=== PATIENT | female | born 1990 | race Caucasian/White ===

== ENCOUNTER 2017-06-20 15:42 | Emergency (ER) | payer SELFPAY ==
[~2017-06-20] VITALS: Ht 157.5 cm; Wt 80.0 kg
[2017-06-20 15:43] VITALS: BP 132/86; PULSE 84; RESP 16; TEMP 98.6; O2SAT 100
== END 2017-06-20 16:50 | disposition left against medical advice (07) ==
LOC: NED 15:42
DX: O26.91 Pregnancy related conditions, unspecified, first trimester (principal)
CPT/HCPCS: 99281

== ENCOUNTER 2017-07-14 14:46 | Emergency (ER) | payer MEDICAID ==
[~2017-07-14] VITALS: Ht 157.5 cm; Wt 80.0 kg
[2017-07-14 14:47] VITALS: BP 119/78; PULSE 104; RESP 14; TEMP 98.3; O2SAT 99
[2017-07-14] MEDS ORDERED: PROMETHAZINE INJ 25 MG/ML VIAL IM ONE (15:15)
[2017-07-14] MEDS ORDERED: SODIUM CHLOR 0.9% 1000 ML INJ 1,000 ML IV ONE (15:15)
--- NOTE | 2017-07-14 15:18 | PD ---
HPI Chief Complaint: GI Complaint Time Seen by Provider: 14:56 Travel History International Travel<30 days: No Contact w/Intl Traveler<30days: No Traveled to known affect area: No History of Present Illness HPI The patient was seen and examined in the presence of the nurse. This patient complains of nausea and vomiting and diarrhea. Symptoms started this morning at 6:45 AM. Patient is 9 weeks dated by early ultrasound. She had one episode of diarrhea today and multiple episodes of vomiting. She reports that her young child has the same symptoms that started at the same time. She denies fever. No vaginal bleeding or discharge. No alleviating factors. No exacerbating factors. duration 8 hours PFSH Past Medical History Diminished Hearing: No ?: LMP: 05/06/17 : 2 Para: 1 Social History Alcohol Use: No Tobacco Use: No Substance Use: No Allergies-Medications (Allergen,Severity, Reaction): Coded Allergies: penicillin G (Unverified Allergy, Intermediate, Rash, 07/14/17) Reported Meds & Prescriptions Reported Meds & Active Scripts Active No Active Prescriptions or Reported Medications Review of Systems General / Constitutional: No: Fever Eyes: No: Visual changes HENT: No: Headaches Cardiovascular: No: Chest Pain or Discomfort Respiratory: No: Shortness of Breath Gastrointestinal: Positive: Nausea, Vomiting, Diarrhea Genitourinary: No: Dysuria Musculoskeletal: No: Pain Skin: No Rash Neurologic: No: Weakness Psychiatric: No: Depression Endocrine: No: Polydipsia Hematologic/Lymphatic: No: Easy Bruising Physical Exam Narrative GENERAL: Well-nourished, well-developed patient in no apparent distress. SKIN: Focused skin assessment reveals no rash and nodules. Skin is Warm and dry. HEAD: Atraumatic. Normocephalic. EYES: Pupils equal and round. No scleral icterus. No injection or drainage. ENT: No nasal bleeding or discharge. Mucous membranes pink and moist. NECK: Trachea midline. No JVD. CARDIOVASCULAR: Regular rate and rhythm. No murmur appreciated. RESPIRATORY: No accessory muscle use. Clear to auscultation. Breath sounds equal bilaterally. GASTROINTESTINAL: Abdomen soft, non-tender, nondistended. Hepatic and splenic margins not palpable. MUSCULOSKELETAL: No obvious deformities. No clubbing. No cyanosis. No edema. NEUROLOGICAL: Awake and alert. No obvious cranial nerve deficits. Motor grossly within normal limits. Normal speech. PSYCHIATRIC: Appropriate mood and affect; insight and judgment normal. Data Data Last Documented VS Vital Signs Date Time Temp Pulse Resp B/P (MAP) Pulse Ox O2 Delivery O2 Flow Rate FiO2 07/14/17 14:47 98.3 104 14 119/78 (92) 99 Orders Orders Promethazine Inj (Phenergan Inj) (07/14/17 15:15) Sodium Chlor 0.9% 1000 Ml Inj (Ns 1000 M (07/14/17 15:15) Complete Blood Count With Diff (07/14/17 15:08) Basic Metabolic Panel (Bmp) (07/14/17 15:08) Labs Laboratory Tests Test 07/14/17 15:20 White Blood Count 11.0 TH/MM3 Red Blood Count 4.63 MIL/MM3 Hemoglobin 14.0 GM/DL Hematocrit 40.9 % Mean Corpuscular Volume 88.3 FL Mean Corpuscular Hemoglobin 30.2 PG Mean Corpuscular Hemoglobin Concent 34.2 % Red Cell Distribution Width 12.3 % Platelet Count 182 TH/MM3 Mean Platelet Volume 9.7 FL Neutrophils (%) (Auto) 93.8 % Lymphocytes (%) (Auto) 2.7 % Monocytes (%) (Auto) 2.9 % Eosinophils (%) (Auto) 0.3 % Basophils (%) (Auto) 0.3 % Neutrophils # (Auto) 10.3 TH/MM3 Lymphocytes # (Auto) 0.3 TH/MM3 Monocytes # (Auto) 0.3 TH/MM3 Eosinophils # (Auto) 0.0 TH/MM3 Basophils # (Auto) 0.0 TH/MM3 CBC Comment DIFF FINAL Differential Comment Blood Urea Nitrogen 9 MG/DL Creatinine 0.64 MG/DL Random Glucose 115 MG/DL Calcium Level 8.4 MG/DL Sodium Level 138 MEQ/L Potassium Level 3.7 MEQ/L Chloride Level 107 MEQ/L Carbon Dioxide Level 20.3 MEQ/L Anion Gap 11 MEQ/L Estimat Glomerular Filtration Rate 113 ML/MIN [facility] Medical Decision Making Medical Screen Exam Complete: Yes Emergency Medical Condition: Yes Medical Record Reviewed: Yes Differential Diagnosis Hyperemesis of , gastroenteritis, food poisoning Narrative Course I have reviewed the patient's electronic medical record. IV placed I gave her 1 L normal saline IV and IM Phenergan CBC is normal Metabolic profile is normal Patient has not had vomiting while here On recheck she feels improved I wrote her some Phenergan. We had a discussion about the category C nature of the medication that she is and she accepts that risk and requests prescription. Because it helped her a lot I have recommended clear liquids for 24 hours, then gradually advance as tolerated. The patient was warned about potential sedation for the medications they will receive on prescription. Needs follow-up Diagnosis Primary Impression: Nausea vomiting and diarrhea Additional Impression: Qualified Codes: Z3A.09 - 9 weeks gestation of Additional Instructions: I have recommended clear liquids for 24 hours, then gradually advance as tolerated. The patient was warned about potential sedation for the medications they will receive on prescription. The patient was advised to follow up with their physician and return if they worsen. Med/Other Pt SpecificInfo: Prescription(s) given Scripts Promethazine (Phenergan) 25 Mg Tablet 25 MG PO Q6H Y for NAUSEA OR VOMITING, #15 TAB 0 Refills Prov: Manuelito Murphy MD 07/14/17 Disposition: 01 DISCHARGE HOME Condition: Stable Manuelito Murphy MD Jul 14, 2017 15:18
[2017-07-14 15:52] LABS: AUTOMATED NEUTROPHIL # 10.3 TH/MM3 (1.8-7.7); BASOPHIL % 0.3 % (0.0-2.0); EOSINOPHIL % 0.3 % (0.0-4.0); HEMATOCRIT 40.9 % (35.0-46.0); HEMO FLAGS DIFF FINAL; LYMPH % 2.7 % (9.0-44.0); LYMPHOCYTE # 0.3 TH/MM3 (1.0-4.8); MEAN CELL VOLUME 88.3 FL (80.0-100.0); MEAN CORPUSCULAR HEMOGLOBIN 30.2 PG (27.0-34.0); MEAN CORPUSCULAR HGB CONC 34.2 % (32.0-36.0); MONO % 2.9 % (0.0-8.0); NEUT % 93.8 % (16.0-70.0); PLATELET COUNT 182 TH/MM3 (150-450); RED BLOOD COUNT 4.63 MIL/MM3 (4.00-5.30); RED CELL DISTRIBUTION WIDTH 12.3 % (11.6-17.2)
[2017-07-14 16:03] LABS: BICARBONATE 20.3 MEQ/L (21.0-32.0); POTASSIUM 3.7 MEQ/L (3.5-5.1)
[2017-07-14] MEDS ORDERED: PROM25TA10 PO (16:11)
[2017-07-14 16:30] VITALS: BP 124/79
== END 2017-07-14 17:05 | disposition home or self-care (01) ==
LOC: NEPD 14:46
DX: O99.89 Other specified diseases and conditions complicating pregnancy, childbirth and the puerperium (principal); R19.7 Diarrhea, unspecified; O21.9 Vomiting of pregnancy, unspecified; Z3A.09 9 weeks gestation of pregnancy
CPT/HCPCS: 80048; 85025; 96360; 96372; 99284; J2550; J7030

== ENCOUNTER 2017-11-07 19:08 | Emergency (ER) | payer MEDICAID, OTHER ==
[~2017-11-07 19:08] MED LIST: PROM25TA10 PO
--- NOTE | 2017-11-07 20:04 | PD ---
HPI Chief Complaint Crampy abdominal pain for a day Date Seen: Nov 07, 2017 Time Seen: 19:55 Travel History International Travel<30 Days: No Contact w/Intl Traveler<30Days: No Known Affected Area: No History of Present Illness HPI Patient is 27-year-old white female [address] Tucker for care she complains of crampy abdominal pain feeling like the known above the bladder is 'bruised.' She denies bleeding or leakage of fluid. No contractions seen on the monitor Nate tracing is reactive. Weeks Gestation: 25 Para: 1 : 3 Last Menstrual Period: Nov 07, 2017 History Obstetric History Obstetric History 1 vaginal delivery in the past 1 early loss Social History Alcohol Use: No Tobacco Use: No Substance Abuse: No Allergies-Medications (Allergen,Severity, Reaction): Coded Allergies: penicillin G (Unverified Allergy, Intermediate, Rash, 07/14/17) Home Meds Active Scripts Promethazine (Phenergan) 25 Mg Tablet, 25 MG PO Q6H Y for NAUSEA OR VOMITING, # 15 TAB 0 Refills Prov:Manuelito Murphy MD 07/14/17 Review of Systems General / Constitutional: No: Fever, Weight Gain, Chills, Other Eyes: No: Diploplia, Blurred Vision, Visual changes, Pain, Photophobia HENT: No: Headaches, Vertigo, Lightheadedness Cardiovascular: No: Irregular Rhythm, Chest Pain or Discomfort, Palpitations, Tachycardia, Syncope, Varicosities, Edema, Cyanosis Respiratory: No: Cough, Short of Breath, Other Gastrointestinal: Abdominal Pain, No: Nausea, Vomiting, Diarrhea Genitourinary: No: Decreased Urinary Output, Oliguria Musculoskeletal: No: Limited ROM, Weakness, Cramping, Edema, Pain Skin: No Rash, No Itching, No Dryness, No Lumps, No Change in Pigmentation, No Change in Nails, No Alopecia, No Lesions Neurologic: No: Weakness, Dizziness, Syncope, Focal Abnormalities, Coordination Problem, Headache, Slurred Speech, Seizures Psychiatric: No: Depression, Suicidal Ideations, Homicidal Ideation Endocrine: No: Heat Intolerance, Cold Intolerance, Polydipsia, Polyuria, Other Physical Exam Narrative GENERAL: Well-nourished, well-developed patient. SKIN: Warm and dry. HEAD: Normocephalic and atraumatic. EYES: No scleral icterus. No injection or drainage. ENT: No nasal drainage noted. Mucous membranes pink. Airway patent. NECK: Supple, trachea midline. No JVD. CARDIOVASCULAR: Regular rate and rhythm without murmurs, gallops, or rubs. RESPIRATORY: Breath sounds equal bilaterally. No accessory muscle use. BREASTS: Bilateral exam showed no masses , no retractions, no nipple discharge. ABDOMEN/GI: Abdomen soft, non-tender, bowel sounds present, no rebound, no guarding Gravid to [25-] weeks size Fundal Height: [25-] GENITOURINARY: External Genitalia: intact and normal in appearance BUS glands: [-] Cervix: [-post] Dilatation: [-0] Effacement: [0-] Station: [-3] Membranes: [intact ] Uterine Contractions: [none-] FHT's: Category: [-1] Baseline: [133-] Reactive: [-R] Variability: [mod-] Decels: [-none] EXTREMITIES: No cyanosis or edema. BACK: Nontender without obvious deformity. No CVA tenderness. NEUROLOGICAL: Awake and alert. Motor and sensory grossly within normal limits. Five out of 5 muscle strength in all muscle groups. Normal speech. Data Data Labs Urinalysis on OB ED is negative MDM Interpretation(s) Patient 27-year-old white female at 25 weeks [facility] with crampy abdominal pain for approximately a day. Pain is now low to the symphysis and radiates around to the back low no pain up high, UA is negative, heart rate tracings reactive no contractions seen. Cervix is closed thick and high posterior. 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 Tylenol liberally, p.o. fluids for hydration, heating pad or hot bath or symptoms. In the follow-up with Dr. Tucker if symptoms persist. Diagnosis Diagnosis: Primary Impression: Abdominal cramping affecting Additional Impression: 25 weeks gestation of Disposition: 01 DISCHARGE HOME Condition: Stable Patient Instructions: General Instructions, Labor (ED), Movement (ED), Abdominal Pain in (ED), Urinary Tract Infection in (ED ) Departure Forms: Tests/Procedures Prabhakar Winston II, MD Nov 07, 2017 20:03
== END 2017-11-07 20:05 | disposition home or self-care (01) ==
LOC: HOBED 19:08
DX: O26.892 Other specified pregnancy related conditions, second trimester (principal); R10.9 Unspecified abdominal pain; Z3A.25 25 weeks gestation of pregnancy
CPT/HCPCS: 99283

== ENCOUNTER 2017-11-28 10:31 | Emergency (ER) | payer MEDICAID ==
[~2017-11-28] VITALS: Ht 160 cm; Wt 79.0 kg
[2017-11-28 10:35] VITALS: BP 131/62; PULSE 96; RESP 18; TEMP 97.7; O2SAT 98
[2017-11-28] MEDS ORDERED: prenatal vitamin PO (10:48)
[2017-11-28] MEDS ORDERED: PERM5CRE TOPICAL (11:01)
--- NOTE | 2017-11-28 11:01 | PD ---
HPI Chief Complaint: Skin Problem Time Seen by Provider: 10:55 Travel History International Travel<30 days: No Contact w/Intl Traveler<30days: No Traveled to known affect area: No History of Present Illness HPI 27-year-old female is complaining of an itchy rash. She has had it for several days. Her has a similar rash. Is involved the abdomen and back. She is currently 26 weeks . She recently acquired a mini pig and wonders if it might be mites from the pig. It is very itchy PFS Past Medical History Medical History: Denies Significant Hx Diminished Hearing: No Tetanus Vaccination: < 5 Years Influenza Vaccination: Yes ?: LMP: 05/06/17 : 2 Para: 1 Past Surgical History Surgical History: No Previous Surgery Social History Alcohol Use: No Tobacco Use: No Substance Use: No Allergies-Medications (Allergen,Severity, Reaction): Coded Allergies: penicillin G (Unverified Allergy, Intermediate, Rash, 11/28/17) Reported Meds & Prescriptions Reported Meds & Active Scripts Active Reported [ vitamin ] 1 Tab PO DAILY Review of Systems General / Constitutional: No: Fever, Chills Eyes: No: Diploplia, Blurred Vision HENT: No: Headaches Cardiovascular: No: Chest Pain or Discomfort Respiratory: No: Cough, Shortness of Breath Gastrointestinal: No: Nausea, Vomiting Musculoskeletal: No: Myalgias Skin: Positive Rash, Positive Itching Physical Exam Narrative GENERAL: SKIN: Focused skin assessment warm/dry. Scattered papular lesions some are excoriated. No lesions above the neck HEAD: Atraumatic. Normocephalic. EYES: Pupils equal and round. No scleral icterus. No injection or drainage. ENT: No nasal bleeding or discharge. Mucous membranes pink and moist. GASTROINTESTINAL: Abdomen soft, non-tender, nondistended. Hepatic and splenic margins not palpable. MUSCULOSKELETAL: No obvious deformities. No clubbing. No cyanosis. No edema. NEUROLOGICAL: Awake and alert. No obvious cranial nerve deficits. Motor grossly within normal limits. Normal speech. PSYCHIATRIC: Appropriate mood and affect; insight and judgment normal. Data Data Last Documented VS Vital Signs Date Time Temp Pulse Resp B/P (MAP) Pulse Ox O2 Delivery O2 Flow Rate FiO2 11/28/17 10:35 97.7 96 18 131/62 (85) 98 MDM Medical Decision Making Medical Screen Exam Complete: Yes Emergency Medical Condition: Yes Medical Record Reviewed: Yes Differential Diagnosis Differential includes scabies Narrative Course Rashes consistent with scabies. I have checked up to date and the indicate that permethrin is safe risk for Diagnosis Primary Impression: Scabies Scripts Permethrin Topical 5% (Permethrin Topical 5%) 5% Cream 2 APPLIC TOPICAL ONCE for Scabies, #1 TUBE 0 Refills Prov: Simon Garcia MD 11/28/17 Disposition: 01 DISCHARGE HOME Condition: Stable Simon Garcia MD Nov 28, 2017 11:01
== END 2017-11-28 12:22 | disposition home or self-care (01) ==
LOC: PHEFT 10:31
DX: O99.712 Diseases of the skin and subcutaneous tissue complicating pregnancy, second trimester (principal); B86 Scabies; Z3A.26 26 weeks gestation of pregnancy
CPT/HCPCS: 99283

== ENCOUNTER 2017-12-25 14:58 | Emergency (ER) | payer MEDICAID ==
[~2017-12-25 14:58] MED LIST changes: +PERM5CRE TOPICAL; -PROM25TA10 PO; +prenatal vitamin PO
[2017-12-25 15:30] VITALS: BP 116/74; PULSE 98
[2017-12-25 15:45] VITALS: BP 108/67; PULSE 90
--- NOTE | 2017-12-25 15:53 | PD ---
HPI Chief Complaint Elevated blood pressure Date Seen: Dec 25, 2017 Travel History International Travel<30 Days: No Contact w/Intl Traveler<30Days: No Known Affected Area: No History of Present Illness HPI The patient is a pleasant 27 year old female who is a at 32/[address] Tucker for her care, sent to OB triage she states for elevated blood pressure. She states she cannot recall how high her blood pressure was in clinic earlier today. She states she has also been having headaches which have been occurring she states since she was about 8 weeks gestational age. She also reports spots or dots in her vision she states having occurred bernadine. 4-5 times over the past two months. She denies her headaches or spots or dots in her vision worsening lately. She denies abdominal pain. Endorses lower extremity swelling up to her ankles bilaterally. She otherwise denies VB, LOF, other abnormal vaginal discharge, denies contractions. Endorses +FM. The patient also reports she failed her 1-hour GTT with a value of 169 and was unable to complete her 3 hour GTT and did not complete this yesterday. Para: 1 : 3 History Past Medical History Narrative Medical Reportedly healthy Obstetric History Obstetric History First per patient resulting in a term vaginal delivery Second resulting in a miscarriage Past Surgical History Surgical History: No Previous Surgery Family History Family History: Negative Social History Alcohol Use: No Tobacco Use: No Substance Abuse: No Allergies-Medications (Allergen,Severity, Reaction): Coded Allergies: penicillin G (Unverified Allergy, Intermediate, Rash, 11/28/17) Home Meds Active Scripts Permethrin Topical 5% (Permethrin Topical 5%) 5% Cream, 2 APPLIC TOPICAL ONCE for Scabies, #1 TUBE 0 Refills Prov:Simon Garcia MD 11/28/17 Reported Medications [ vitamin ] No Conflict Check, 1 TAB PO DAILY 11/28/17 Review of Systems Except as stated in HPI: all other systems reviewed are Neg Physical Exam Narrative GENERAL: Well-nourished, well-developed patient. SKIN: Warm and dry. HEAD: Normocephalic and atraumatic. EYES: No scleral icterus. No injection or drainage. ENT: No nasal drainage noted. Mucous membranes pink. Airway patent. NECK: Supple, trachea midline. No JVD. CARDIOVASCULAR: Regular rate and rhythm without murmurs, gallops, or rubs. RESPIRATORY: Breath sounds equal bilaterally. No accessory muscle use. ABDOMEN/GI: Abdomen soft, non-tender, bowel sounds present, no rebound, no guarding Gravid to 32 weeks size GENITOURINARY: Uterine Contractions: none on tocometer FHT's: Category: I Baseline: 130s Reactive: +accels Variability: moderate Decels: none noted EXTREMITIES: No cyanosis or edema. BACK: Nontender without obvious deformity. NEUROLOGICAL: Awake and alert. Motor and sensory grossly within normal limits. Normal speech. Data Data Vital Signs Reviewed: Yes Orders Orders Cbc No Diff, Includes Plts (12/25/17 15:32) Comprehensive Metabolic Panel (12/25/17 15:32) Uric Acid (12/25/17 15:32) Urinalysis - C+S If Indicated (12/25/17 15:32) Vital Signs (Adult) .ON ADMISSION (12/25/17 15:32) ^ Labor Status (12/25/17 15:32) ^ Non Stress Test (12/25/17 15:32) Protein Creat Ratio, Random Ur (12/25/17 15:32) Hemoglobin (Hgb) A1c (12/25/17 15:32) MDM Medical Record Reviewed: Yes Plan Very pleasant 27 year old at 32/2 weeks gestation here for evaluation of hypertension in . - Initial BP in ob triage 116/74 with repeat 30 minutes later at 108/67 - Will check cbc, cmp, uric acid, spot protein to creatinine ratio, UA - Check HbA1c - cbc, cmp, uric acid within normal limits - Urine protein to creatinine ratio nml at 0.11 - Preeclampsia precautions discussed with patient - Pt instructed to f/u in office with Dr. Garrett Marlow Diagnosis Diagnosis: Primary Impression: Elevated blood pressure reading Additional Impression: Disposition: DISCHARGE HOME Condition: Stable Zan Card MD R2 Dec 25, 2017 15:53
[2017-12-25 16:00] VITALS: BP 105/61; PULSE 90
[2017-12-25 16:08] LABS: HEMATOCRIT 37.7 % (35.0-46.0); MEAN CELL VOLUME 85.4 FL (80.0-100.0); MEAN CORPUSCULAR HEMOGLOBIN 29.3 PG (27.0-34.0); MEAN CORPUSCULAR HGB CONC 34.4 % (32.0-36.0); MEAN PLATELET VOLUME 9.3 FL (7.0-11.0); PLATELET COUNT 185 TH/MM3 (150-450); RED BLOOD COUNT 4.42 MIL/MM3 (4.00-5.30); RED CELL DISTRIBUTION WIDTH 12.8 % (11.6-17.2); WHITE BLOOD COUNT 7.4 TH/MM3 (4.0-11.0)
[2017-12-25 16:15] VITALS: BP 112/73; PULSE 90
[2017-12-25 16:15] LABS: BACTERIA, URINE FEW /hpf; BILIRUBIN, URINE NEG (NEG); BLOOD, URINE NEG (NEG); CALCIUM OXALATE CRYSTALS,URINE MOD /hpf; GLUCOSE,URINE NEG (NEG); KETONE, URINE NEG (NEG); MUCUS URINE FEW /lpf (OCC); NITRITE,URINE NEG (NEG); PH, URINE 5.5 (5.0-8.5); SQUAMOUS EPITHELIAL CELL URINE 3 /hpf (0-5); URINE COLOR YELLOW (YELLW/STRAW); URINE LEUKOCYTE ESTERASE NEG (NEG)
[2017-12-25 16:30] VITALS: BP 110/73; PULSE 89
[2017-12-25 16:42] LABS: ALT (GPT) 17 U/L (10-53); AST (GOT) 17 U/L (15-37); BICARBONATE 22.7 MEQ/L (21.0-32.0); BLOOD UREA NITROGEN 6 MG/DL (7-18); CHLORIDE 105 MEQ/L (98-107); CREATININE 0.66 MG/DL (0.50-1.00); GLOMERULAR FILTRATION RATE 108 ML/MIN (>89); GLUCOSE,RANDOM 101 MG/DL (74-106); SODIUM (NA) 138 MEQ/L (136-145)
[2017-12-25 16:45] LABS: ALKALINE PHOSPHATASE 101 U/L (45-117); TOTAL BILIRUBIN ADULT 0.4 MG/DL (0.2-1.0)
[2017-12-25 22:21] LABS: HEMOGLOBIN A1C 5.1 % (4.3-6.0)
== END 2017-12-25 17:09 | disposition home or self-care (01) ==
LOC: HOBED 14:58
DX: O16.3 Unspecified maternal hypertension, third trimester (principal); O26.893 Other specified pregnancy related conditions, third trimester; M79.89 Other specified soft tissue disorders; R51 Headache; Z3A.32 32 weeks gestation of pregnancy
CPT/HCPCS: 36415; 59025; 80053; 81001; 82570; 83036; 84156; 84550; 85027

== ENCOUNTER 2018-01-09 12:20 | Emergency (ER) | payer MEDICAID ==
[2018-01-09 12:33] VITALS: BP 130/74; PULSE 97
[2018-01-09 12:45] VITALS: BP 122/76; PULSE 96
[2018-01-09 12:53] VITALS: RESP 18; TEMP 98.3
--- NOTE | 2018-01-09 12:59 | PD ---
HPI Chief Complaint Possible ROM Date Seen: January 09, 2018 Travel History International Travel<30 Days: No Contact w/Intl Traveler<30Days: No Known Affected Area: No History of Present Illness HPI The patient is a pleasant 27 year old at 34/3 weeks gestation who presents for evaluation of possible SROM. The patient states earlier this morning she started to feel dizzy and had a mild headache and as well as pressure in her pelvis. She went to sit in a bathtub to help relieve her symptoms. She states later on as she was dressing she noticed some leakage of fluid almost a gush. She stated the fluid was clear, she was unsure if the fluid was amniotic fluid or urine or possibly fluid from her shower. She denies any contractions. She denies visual changes, RUQ abdominal pain, worsening lower extremity swelling. + movements. She denies fevers or chills, chest pain, dysuria. History Past Medical History Narrative Medical Reportedly healthy Obstetric History Obstetric History First per patient resulting in a term vaginal delivery Second resulting in a miscarriage Past Surgical History Surgical History: No Previous Surgery Family History Family History: Negative Social History Alcohol Use: No Tobacco Use: No Substance Abuse: No Allergies-Medications (Allergen,Severity, Reaction): Coded Allergies: penicillin G (Unverified Allergy, Intermediate, Rash, 11/28/17) Home Meds Reported Medications [ vitamin ] No Conflict Check, 1 TAB PO DAILY 11/28/17 Discontinued Scripts Permethrin Topical 5% (Permethrin Topical 5%) 5% Cream, 2 APPLIC TOPICAL ONCE for Scabies, #1 TUBE 0 Refills Prov:Simon Garcia MD 11/28/17 Review of Systems Except as stated in HPI: all other systems reviewed are Neg Physical Exam Narrative GENERAL: Well-nourished, well-developed patient. SKIN: Warm and dry. HEAD: Normocephalic and atraumatic. EYES: No scleral icterus. No injection or drainage. ENT: No nasal drainage noted. Mucous membranes pink. Airway patent. NECK: Supple, trachea midline. No JVD. CARDIOVASCULAR: Regular rate and rhythm without murmurs, gallops, or rubs. RESPIRATORY: Breath sounds equal bilaterally. No accessory muscle use. ABDOMEN/GI: Abdomen soft, non-tender, bowel sounds present, no rebound, no guarding Gravid to 34 weeks size GENITOURINARY: External Genitalia: [-] Cervix: [-] Dilatation: [-] Effacement: [-] Station: [-] Presentation: [-] Membranes: intact Uterine Contractions: [-] FHT's: Category: I Baseline: 130s Reactive: + Variability: moderate Decels: none noted EXTREMITIES: No cyanosis or edema. BACK: Nontender without obvious deformity. No CVA tenderness. NEUROLOGICAL: Awake and alert. Motor and sensory grossly within normal limits. Five out of 5 muscle strength in all muscle groups. Normal speech. Data Data Vital Signs Reviewed: Yes Orders Orders Vital Signs (Adult) .ON ADMISSION (01/09/18 12:41) ^ Labor Status (01/09/18 12:41) ^ Non Stress Test (01/09/18 12:41) Pamg-1 Test .ONCE (01/09/18 12:41) MDM Medical Record Reviewed: Yes Plan 27 year old at 34/3 weeks gestation evaluated in OB triage for possible SROM. - Amnisure negative - Category I tracing - No contractions on tocometer - Labor precautions discussed with patient and si/sxs that would warrant a return visit to OB ED for reevaluation - Patient will continue follow up with Dr. Garrett Rosa Diagnosis Diagnosis: Primary Impression: 34 weeks gestation of Disposition: 01 DISCHARGE HOME Condition: Stable Patient Instructions: Movement (ED), Early Labor Signs (ED), General Instructions Zan Card MD R2 January 09, 2018 12:59
== END 2018-01-09 13:18 | disposition home or self-care (01) ==
LOC: HOBED 12:20
DX: O26.893 Other specified pregnancy related conditions, third trimester (principal); R42 Dizziness and giddiness; Z3A.34 34 weeks gestation of pregnancy
CPT/HCPCS: 59025; 84112

== ENCOUNTER 2018-01-31 15:04 | Emergency (ER) | payer MEDICAID ==
[~2018-01-31 15:04] MED LIST changes: -PERM5CRE TOPICAL
--- NOTE | 2018-01-31 16:21 | PD ---
HPI Chief Complaint sob, pelvic pain Date Seen: January 31, 2018 Time Seen: 16:11 Travel History International Travel<30 Days: No Contact w/Intl Traveler<30Days: No Known Affected Area: No History of Present Illness HPI pt. is a 27 @ 37 4/7 weeks present w/ c/o sob and pelvic pain. pt. states for the last few days has been having increasing sob w/ activity. pt. states gets tired quickly. on presentation pt. o2 sat on room air is 99%. pt. also feeling low abdominal/pelvic pain/pressure w/ walking. +FM, no lof/vb, no ctxs. Weeks Gestation: 37 Para: 1 : 3 Miscarriage: 1 History Past Medical History Medical History: Denies Significant Hx Obstetric History Obstetric History , x 1, sab x 1 Past Surgical History Surgical History: No Previous Surgery Family History Family History: Negative Social History Alcohol Use: No Tobacco Use: No Substance Abuse: No Allergies-Medications (Allergen,Severity, Reaction): Coded Allergies: penicillin G (Unverified Allergy, Intermediate, Rash, 11/28/17) Home Meds Reported Medications [ vitamin ] No Conflict Check, 1 TAB PO DAILY 11/28/17 Review of Systems Except as stated in HPI: all other systems reviewed are Neg Physical Exam Narrative GENERAL: Well-nourished, well-developed patient. SKIN: Warm and dry. HEAD: Normocephalic and atraumatic. EYES: No scleral icterus. No injection or drainage. ENT: No nasal drainage noted. Mucous membranes pink. Airway patent. NECK: Supple, trachea midline. No JVD. CARDIOVASCULAR: Regular rate and rhythm without murmurs, gallops, or rubs. RESPIRATORY: Breath sounds equal bilaterally. No accessory muscle use. BREASTS: Bilateral exam showed no masses , no retractions, no nipple discharge. ABDOMEN/GI: Abdomen soft, non-tender, bowel sounds present, no rebound, no guarding Gravid GENITOURINARY: External Genitalia: intact and normal in appearance Uterine Contractions: none FHT's: Category: 1 Reactive: + Variability: mod EXTREMITIES: No cyanosis or edema. BACK: Nontender without obvious deformity. No CVA tenderness. NEUROLOGICAL: Awake and alert. Motor and sensory grossly within normal limits. Five out of 5 muscle strength in all muscle groups. Normal speech. Data Data Vital Signs Reviewed: Yes Orders Orders Urinalysis - C+S If Indicated (01/31/18 16:09) [facility] Medical Record Reviewed: Yes Plan pt. to be d/c to home. sob w/ ambulation due to and pelvic pressure. condition d/w pt. all ? answered. pt. given precautions for return. pt. to f /u as sched. Diagnosis Diagnosis: Primary Impression: Pelvic pressure in Additional Impression: SOB (shortness of breath) on exertion Disposition: 01 DISCHARGE HOME Junior Marlow Jr., MD January 31, 2018 16:21
[2018-01-31 16:59] LABS: BILIRUBIN, URINE NEG (NEG); BLOOD, URINE NEG (NEG); CALCIUM OXALATE CRYSTALS,URINE MOD /hpf; GLUCOSE,URINE NEG (NEG); KETONE, URINE NEG (NEG); MUCUS URINE FEW /lpf (OCC); NITRITE,URINE NEG (NEG); SQUAMOUS EPITHELIAL CELL URINE 1 /hpf (0-5); URINE COLOR YELLOW (YELLW/STRAW); URINE LEUKOCYTE ESTERASE NEG (NEG)
== END 2018-01-31 17:28 | disposition home or self-care (01) ==
LOC: HOBED 15:04
DX: O26.893 Other specified pregnancy related conditions, third trimester (principal); R06.02 Shortness of breath; R10.2 Pelvic and perineal pain; Z3A.37 37 weeks gestation of pregnancy
CPT/HCPCS: 59025; 81001

== ENCOUNTER 2018-02-02 09:21 | Inpatient (IN) | payer MEDICAID ==
[~2018-02-02] VITALS: Ht 160 cm; Wt 83.0 kg
--- NOTE | 2018-02-02 09:53 | HHI.HP ---
History & Physical H&P Patient Name: Chelsea Mari Unit Number: [id number] Date of : 1990 Patient Status: Admitted Inpatient Attending Doctor: Belen Mccartney MD HPI HPI Chief Complaint Leaking fluid Date Seen: Feb 02, 2018 Time Seen: 09:47 Travel History International Travel<30 Days: No Contact w/Intl Traveler<30Days: No Known Affected Area: No History of Present Illness HPI 27-year-old 3 para 1 at 36+ weeks gestation with an EDC of 02/17/2018, the patient reports leaking clear fluid. She denies bleeding. She is having mild cramping. History (Limited) History Past Medical History Medical History: Denies Significant Hx Obstetric History Obstetric History 1 prior term vaginal delivery This has been uncomplicated under the care of Dr. Edin Doty Past Surgical History Surgical History: No Previous Surgery Family History Family History: Negative Social History Alcohol Use: No Tobacco Use: No Substance Abuse: No Allergies-Medications Allergies-Medications (Allergen,Severity, Reaction): Coded Allergies: penicillin G (Unverified Allergy, Intermediate, Rash, 11/28/17) Home Meds Reported Medications [ vitamin ] No Conflict Check, 1 TAB PO DAILY 11/28/17 ROS Review of Systems Except as stated in HPI: all other systems reviewed are Neg Physical Exam Physical Exam Narrative GENERAL: Well-nourished, well-developed patient. SKIN: Warm and dry. HEAD: Normocephalic and atraumatic. EYES: No scleral icterus. No injection or drainage. ENT: No nasal drainage noted. Mucous membranes pink. Airway patent. NECK: Supple, trachea midline. No JVD. CARDIOVASCULAR: Regular rate and rhythm without murmurs, gallops, or rubs. RESPIRATORY: Breath sounds equal bilaterally. No accessory muscle use. ABDOMEN/GI: Abdomen soft, non-tender, bowel sounds present, no rebound, no guarding Gravid to [-] weeks size Fundal Height: [-] GENITOURINARY: External Genitalia: intact and normal in appearance BUS glands: [-Negative] Cervix: [-] Dilatation: [-3] Effacement: [50-] Station: [-2-] Presentation: [-] Membranes: [ruptured] Uterine Contractions: [Mild irregular-] FHT's: Category: [1-] Baseline: [-] Reactive: [-] Variability: [-] Decels: [-] EXTREMITIES: No cyanosis or edema. BACK: Nontender without obvious deformity. No CVA tenderness. NEUROLOGICAL: Awake and alert. Motor and sensory grossly within normal limits. Five out of 5 muscle strength in all muscle groups. Normal speech. Data Data Data Vital Signs Reviewed: Yes Orders Orders Ob (2e) Additional Admit Info (02/02/18 09:38) Group B Strep: Negative MDM MDM Medical Record Reviewed: Yes Narrative Course / MDM Assessment: 27-year-old 3 para 1 at 36+ weeks gestation with spontaneous rupture of membranes and early labor Plan: Admit for labor management Diagnosis Diagnosis: Primary Impression: 36 weeks gestation of Additional Impression: Spontaneous rupture of membranes Demarco Land MD, Stephen A MD Feb 02, 2018 09:53
[2018-02-02] MEDS ORDERED: LIDOCAINE HCL 1% 50 ML VIAL I-DERMAL PRN (10:00)
[2018-02-02] MEDS ORDERED: CITRIC ACID-SODIUM CITRATE LIQ 30 ML UDC PO SCH (10:00)
[2018-02-02] MEDS ORDERED: OXYTOCIN 30 UNITS-500ML PREMIX 500 ML IV ONE (10:00)
[2018-02-02] MEDS ORDERED: SODIUM CHLORID 0.9% 500 ML INJ 500 ML IV PRN (10:00)
[2018-02-02] MEDS ORDERED: MINERAL OIL 10 ML VIAL TOPICAL PRN (10:00)
[2018-02-02] MEDS ORDERED: LIDOCAINE HCL 1% 50 ML VIAL INFIL PRN (10:00)
[2018-02-02] MEDS ORDERED: SODIUM CHLOR 0.9% 1000 ML INJ 1,000 ML IV PRN (10:13)
[2018-02-02] MEDS ORDERED: ZANT150T2 PO (10:39)
[2018-02-02 11:14] LABS: AUTOMATED NEUTROPHIL # 4.6 TH/MM3 (1.8-7.7); BASOPHIL % 0.3 % (0.0-2.0); EOSINOPHIL # 0.1 TH/MM3 (0-0.4); EOSINOPHIL % 1.7 % (0.0-4.0); HEMATOCRIT 36.2 % (35.0-46.0); HEMOGLOBIN 12.8 GM/DL (11.6-15.3); LYMPH % 26.4 % (9.0-44.0); LYMPHOCYTE # 1.8 TH/MM3 (1.0-4.8); MEAN CELL VOLUME 84.3 FL (80.0-100.0); MEAN CORPUSCULAR HEMOGLOBIN 29.8 PG (27.0-34.0); MEAN CORPUSCULAR HGB CONC 35.3 % (32.0-36.0); MEAN PLATELET VOLUME 10.4 FL (7.0-11.0); MONO % 5.5 % (0.0-8.0); MONOCYTE # 0.4 TH/MM3 (0-0.9); NEUT % 66.1 % (16.0-70.0); PLATELET COUNT 157 TH/MM3 (150-450); RED CELL DISTRIBUTION WIDTH 12.9 % (11.6-17.2)
[2018-02-02 11:36] LABS: BILIRUBIN, URINE NEG (NEG); BLOOD, URINE NEG (NEG); GLUCOSE,URINE NEG (NEG); KETONE, URINE NEG (NEG); MUCUS URINE FEW /lpf (OCC); NITRITE,URINE NEG (NEG); PH, URINE 6.5 (5.0-8.5); SQUAMOUS EPITHELIAL CELL URINE 4 /hpf (0-5); URINE COLOR YELLOW (YELLW/STRAW); URINE LEUKOCYTE ESTERASE NEG (NEG)
[2018-02-02] MEDS: LACTATED RINGER'S 1000 ML INJ 1,000 ML IV SCH ×2 (12:04→17:53)
[2018-02-02] MEDS: LACTATED RINGER'S 1000 ML INJ 1,000 ML IV PRN ×2 (12:04→15:19)
[2018-02-02] MEDS ORDERED: OXYTOCIN 30 UNITS-500ML PREMIX 500 ML IV PRN (12:45)
[2018-02-02] MEDS ORDERED: ePHEDrine/NS 25 MG/5 ML SYRINGE ONE (15:49)
[2018-02-02] MEDS ORDERED: fentaNYL 2MCG-BUPIV 0.125% INJ 150 ML EPIDURAL ONE (15:49)
[2018-02-02] MEDS ORDERED: MEASLES, MUMPS, RUBELLA VACCINE 0.5 ML VIAL SQ ONE (16:00)
[2018-02-02] MEDS ORDERED: DIPHTH/TETANUS/ACEL PERTUSSIS (BOOSTER) 0.5 ML VIAL/PFS IM ONE (16:00)
[2018-02-02] MEDS ORDERED: LIDOCAINE 2%/EPINEPHrine PF 1:200,000 20ML SDV ONE (16:10)
[2018-02-02] MEDS ORDERED: fentaNYL 2MCG-BUPIV 0.125% 100 ML EPIDURAL PRN (17:00)
[2018-02-02] MEDS ORDERED: NO SYSTEM NARCOTICS PRN (17:00)
[2018-02-02] MEDS ORDERED: DO NOT ADMINISTER ANTICOAGULANTS PRN (17:00)
[2018-02-02] MEDS ORDERED: ePHEDrine/NS 25 MG/5 ML SYRINGE IV PUSH PRN (17:00)
[2018-02-02] MEDS ORDERED: LIDOCAINE HCL 1% PF 5 ML AMPULE ONE (18:42)
--- NOTE | 2018-02-02 19:13 | PD.OB.DELI ---
Weeks gestation: 37 Pt started active labor?: Yes Medical induction of labor?: No Artificial rupture of membrane: No Anesthesia: Epidural Episiotomy: None Vaginal Delivery: Normal, Spontaneous Presentation: Occiput anterior Nuchal Cord: None Delayed cord clamping (45 sec): Yes Infant: Female Delivery date: Feb 02, 2018 Delivery time: 18:37 One Minute : 9 Five Minute : 9 Weight: 5'7" Placenta: Spontaneous delivery, Intact Laceration: 1 deg Repair: Vicryl running Estimated blood loss: 400cc Junior Marlow Jr., MD Feb 02, 2018 19:13
[2018-02-02] MEDS ORDERED: ACETAMINOPHEN 325 MG TAB PO PRN (19:15)
[2018-02-02] MEDS ORDERED: ZOLPIDEM TARTRATE 5 MG TAB PO PRN (19:15)
[2018-02-02] MEDS ORDERED: ALUMINUM/MAGNESIUM/SIMETH 30 ML CUP PO PRN (19:15)
[2018-02-02] MEDS ORDERED: ONDANSETRON ODT 4 MG TAB PO PRN (19:15)
[2018-02-02] MEDS ORDERED: oxyCODONE/ACETAMINOPHEN 5 MG/325 MG TAB PO PRN (19:15)
[2018-02-02] MEDS ORDERED: OXYTOCIN 30 UNITS-500ML PREMIX 500 ML IV SCH (19:15)
[2018-02-02] MEDS ORDERED: DOCUSATE SODIUM 50 MG/SENNA 8.6 MG TAB PO PRN (19:15)
[2018-02-02] MEDS ORDERED: SODIUM CHLORIDE 0.9% FLUSH 10 ML FLUSH IV FLUSH PRN (19:15)
[2018-02-02] MEDS ORDERED: SODIUM CHLORIDE 0.9% FLUSH 10 ML FLUSH IV FLUSH SCH (21:00)
[2018-02-03] MEDS: IBUPROFEN 800 MG TAB PO PRN ×3 (00:47→18:58)
[2018-02-03] MEDS: WITCH HAZEL 50%/GLYCERIN 12.5% 40 PAD JAR TOPICAL PRN ×2 (00:47→20:48)
[2018-02-03] MEDS: BENZOCAINE 20% TOPICAL SPRAY 60 ML CAN TOPICAL PRN ×2 (00:47→20:48)
[2018-02-03 08:00] VITALS: BP 115/82; PULSE 79; RESP 20; TEMP 98.2; O2SAT 98
--- NOTE | 2018-02-03 08:46 | HHI.OB ---
Subjective Post Day: 1 Remarks doing well, ambulating, some low back pain Objective Vitals/I&O vss afeb Objective Remarks GENERAL: Well-nourished, well-developed patient. CARDIOVASCULAR: Regular rate and rhythm without murmurs, gallops, or rubs. RESPIRATORY: Breath sounds equal bilaterally. No accessory muscle use. ABDOMEN/GI: Abdomen soft, non-tender. Fundus: Firm, non-tender at umbilicus. GENITOURINARY: Light to moderate bleeding. EXTREMITIES: No cyanosis or edema, non-tender, without signs of DVT. Medications and IVs Current Medications Medications (Trade) Dose Ordered Sig/Noah Route Start Time Stop Time Status Last Admin Lactated Ringer's 1,000 ml @ 125 mls/hr Q8H IV 02/02/18 09:53 02/02/18 12:04 Lactated Ringer's 1,000 ml @ 3,000 mls/hr Q20M PRN IV 02/02/18 09:53 02/02/18 15:19 Sodium Chloride 500 ml @ 1,000 mls/hr ONCE PRN IV 02/02/18 10:00 02/03/18 09:59 Sodium Chloride 1,000 ml @ 100 mls/hr Q10H PRN IV 02/02/18 10:13 (Xylocaine 1% Inj (50 ml)) 0.1 ml UNSCH X1 PRN I-DERMAL 02/02/18 10:00 02/05/18 09:59 (Bicitra Liq) 30 ml ICE PULLER PO 02/02/18 10:00 02/06/18 09:59 (fentaNYL INJ) 50 mcg Q1H PRN IV PUSH 02/02/18 10:00 (fentaNYL INJ) 100 mcg Q1H PRN IV PUSH 02/02/18 10:00 (Xylocaine 1% Inj (50 ml)) 10 ml UNSCH X1 PRN INFIL 02/02/18 10:00 02/04/18 09:59 (Muri-Lube Oil) 10 ml UNSCH PRN TOPICAL 02/02/18 10:00 Oxytocin 500 ml @ 0 mls/hr TITRATE PRN IV 02/02/18 12:45 02/02/18 15:19 ([facility] Nursing Information) No systemic narcotics to be given except... UNSCH PRN .XX 02/02/18 17:00 02/03/18 16:59 ([facility] Nursing Information) DO NOT ADMINISTER ANY ANTICOAGUL... UNSCH PRN .XX 02/02/18 17:00 02/03/18 16:59 Fentanyl/ Bupivacaine HCl 100 ml @ 0 mls/hr TITRATE PRN EPIDURAL 02/02/18 17:00 (ePHEDrine/NS 25 MG/5 ML SYR) 10 mg UNSCH PRN IV PUSH 02/02/18 17:00 02/03/18 16:59 (NS Flush) 2 ml BID IV FLUSH 02/02/18 21:00 (NS Flush) 2 ml UNSCH PRN IV FLUSH 02/02/18 19:15 (Tylenol) 650 mg Q4H PRN PO 02/02/18 19:15 (Motrin) 800 mg Q8H PRN PO 02/02/18 19:15 02/03/18 00:47 (Percocet 5-325 Mg) 1 tab Q4H PRN PO 02/02/18 19:15 (Percocet 5-325 Mg) 2 tab Q4H PRN PO 02/02/18 19:15 (Americaine 20% Top Spr) 1 spray Q4H PRN TOPICAL 02/02/18 19:15 02/03/18 00:47 (Tucks Pads) 1 applic QID PRN TOPICAL 02/02/18 19:15 02/03/18 00:47 (Brooke-Colace) 2 tab Q12H PRN PO 02/02/18 19:15 (Ambien) 5 mg HS PRN PO 02/02/18 19:15 (Mag-Al Plus Susp Liq) 15 ml Q8H PRN PO 02/02/18 19:15 (Zofran Odt) 4 mg Q6H PRN PO 02/02/18 19:15 Assessment/Plan Problem List: (1) Vaginal delivery ICD Codes: O80 - Encounter for full-term uncomplicated delivery Assessment and Plan PPD #1 routine PP care Discharge Planning in am Attending Attestation pt seen by Belen Zuniga MD Feb 03, 2018 08:46
[2018-02-03] MEDS: oxyCODONE/ACETAMINOPHEN 5 MG/325 MG TAB PO PRN (18:58)
[2018-02-04] MEDS: oxyCODONE/ACETAMINOPHEN 5 MG/325 MG TAB PO PRN (06:11)
[2018-02-04] MEDS: IBUPROFEN 800 MG TAB PO PRN (06:11)
[2018-02-04] MEDS ORDERED: IBUP1TAB7 PO (13:32)
[2018-02-04] MEDS ORDERED: OXYC1TAB63 PO (13:32)
--- NOTE | 2018-02-04 13:32 | HHI.DCPOC ---
Discharge Care Plan Diagnosis: (1) Vaginal delivery Your Health Problems Are: Vaginal delivery Report Symptoms to Your Doctor -Temperature above 100.5 degrees -Redness, of incision or excessive or foul smelling drainage -Unusual pain or calf pain -Increased vaginal bleeding -Painful or difficulty urinating -Feelings of extreme sadness or anxiety after 2 weeks Goals to Promote Your Health * To prevent worsening of your condition and complications * To maintain your health at the optimal level Directions to Meet Your Goals Take your medications as prescribed Follow your dietary instruction Follow activity as directed Ensure plenty of rest for recovery Drink fluids for hydration Keep your appointments as scheduled Take your immunizations and boosters as scheduled If your symptoms worsen call your PCP, if no PCP go to Urgent Care Center or Emergency Room Smoking is Dangerous to Your Health. Avoid second hand smoke Call the 24-hour crisis hotline for domestic abuse at [facility] Feb 04, 2018 13:31
--- NOTE | 2018-02-04 13:33 | HHI.DS ---
Admission Date Feb 02, 2018 at 09:38 Discharge Date: Feb 04, 2018 Admitting Diagnosis 37 WEEKS GESTATION SROM Diagnosis: (1) 36 weeks gestation of ICD Codes: Z3A.36 - 36 weeks gestation of Status: Acute (2) Vaginal delivery ICD Codes: O80 - Encounter for full-term uncomplicated delivery Delivery Date: Feb 02, 2018 Vaginal Delivery: Normal : Female Brief History 27-year-old 3 para 1 at 36+ weeks gestation with an EDC of 02/17/2018, the patient reports leaking clear fluid. She denies bleeding. She is having mild cramping. Hospital Course ROUTINE CARE Pt Condition on Discharge: Good Discharge Disposition: Discharge Home Discharge Instructions Diet Instructions: As Tolerated, No Restrictions Additional Diet Instructions: Drink at least 8 - 16 oz bottles of water a day Activities You Can Perform: Shower Only-No Bath, Sitz Bath Activities to Avoid: Lifting/Bending, Sexual Activity Additional Activity Instruc.: No driving until off pain medications Do not lift anything heavier than your baby in an carrier Follow up Referrals: SYNTHETIC CHEMIST - 2 Weeks @ [facility] Feb 04, 2018 13:33
== END 2018-02-04 14:30 | disposition home or self-care (01) | DRG 775 ==
LOC: HOBED 09:21 → H2EA 09:38 → H1EA 20:49
PROVIDERS: ADMIT Obstetrics & Gynecology; ATTEND Obstetrics & Gynecology
PROC: 10E0XZZ Delivery of Products of Conception, External Approach (ICD-10-PCS; principal; 2018-02-02)
PROC: 0HQ9XZZ Repair Perineum Skin, External Approach (ICD-10-PCS; 2018-02-02)
PROC: 00HU33Z Insertion of Infusion Device into Spinal Canal, Percutaneous Approach (ICD-10-PCS; 2018-02-02)
PROC: 3E0R3BZ Introduction of Anesthetic Agent into Spinal Canal, Percutaneous Approach (ICD-10-PCS; 2018-02-02)
DX: O70.0 First degree perineal laceration during delivery (principal); Z37.0 Single live birth; Z3A.36 36 weeks gestation of pregnancy
CPT/HCPCS: 59025; 80307; 81001; 84112; 85025; 86900; 86901; 90715; G0481; J2590; J7120